=== PATIENT | male | born 1975 | race Caucasian/White ===

== ENCOUNTER 2016-11-03 15:19 | Emergency (ER) | payer OTHER ==
[2016-11-03 16:10] VITALS: RESP 18; TEMP 98.1; O2SAT 100
[2016-11-03] MEDS ORDERED: Naproxen 550 mg Tab PO STA (17:15)
[2016-11-03] MEDS ORDERED: Naproxen 550 mg Tab PO ONE (17:23)
[2016-11-03 17:47] LABS: RBC URINE 52 /hpf (0-3); URINE BILIRUBIN NEGATIVE (NEGATIVE); URINE COLOR Straw (YELLOW); URINE GLUCOSE (UA) NORMAL (Normal); URINE KETONE NEGATIVE (NEGATIVE); URINE LEUKOCYTE ESTERASE NEG Leu/uL (Negative); URINE PROTEIN NEGATIVE (NEGATIVE); URINE UROBILINOGEN NORMAL mg/dL (0.2-1.0); WBC URINE 1 /hpf (0-5)
[2016-11-03 17:48] LABS: URINE BLOOD 3+ (NEGATIVE)
--- NOTE | 2016-11-03 18:02 | C.PDOC ---
Time Seen by Provider: 11/03/16 17:07 Chief Complaint (Nursing): Abdominal Pain History Per: Patient Onset/Duration Of Symptoms: Hrs (since this morning), Sudden Onset Current Symptoms Are (Timing): Gone Severity: Severe Location Of Pain/Discomfort: RLQ Quality Of Discomfort: "Pain" Associated Symptoms: Urinary Symptoms Exacerbating Factors: None Additional History Per: Prior Records Past Medical History Reviewed: Historical Data, Nursing Documentation, Vital Signs Vital Signs: Last Vital Signs Temp 98.1 F 11/03/16 16:08 Pulse 69 11/03/16 16:08 Resp 18 11/03/16 16:08 BP 132/86 11/03/16 16:08 Pulse Ox 100 11/03/16 16:08 - Medical History PMH: Kidney Stones Surgical History: No Surg Hx Family History: States: Unknown Family Hx - Social History Hx Alcohol Use: No Hx Substance Use: No Review Of Systems Except As Marked, All Systems Reviewed And Found Negative. Constitutional: Negative for: Fever, Weakness Cardiovascular: Negative for: Chest Pain Respiratory: Negative for: Shortness of Breath Gastrointestinal: Negative for: Vomiting, Diarrhea Genitourinary: Positive for: Dysuria. Negative for: Scrotal Pain Musculoskeletal: Negative for: Neck Pain, Back Pain Skin: Negative for: Rash Neurological: Negative for: Weakness, Numbness, Seizures, Altered Mental Status Physical Exam - Physical Exam Appears: Non-toxic, No Acute Distress Skin: Normal Color, Warm, Dry, No Rash Head: Atraumatic, Normacephalic Eye(s): bilateral: PERRL, EOMI Neck: Normal ROM, Supple Cardiovascular: Rhythm Regular Respiratory: Normal Breath Sounds, No Accessory Muscle Use Gastrointestinal/Abdominal: Soft, No Tenderness Back: No CVA Tenderness Extremity: Normal ROM Neurological/Psych: Oriented x3, Normal Motor, Normal Sensation ED Course And Treatment - Laboratory Results Interpretation Of Abnormal: Microscopic hematuria O2 Sat by Pulse Oximetry: 100 Pulse Ox Interpretation: Normal Progress Note: Pt is currently pain free. Medical Decision Making Medical Decision Making: Pt likely already passed the kidney stone because pain already resolved spontaneously. Pt was given a urine strainer and will be referred to a Urologist. Disposition Counseled Patient/Family Regarding: Studies Performed, Diagnosis, Need For Followup, Rx Given - Disposition Referrals: Pankaj Webb MD [Staff Provider] - Disposition: HOME/ ROUTINE Disposition Time: 18:05 Condition: IMPROVED Additional Instructions: Drink plenty of fluids. Follow up with a Urologist for further evaluation and treatment. Return to the ER if you develop fever, vomiting, trouble urinating, worsening of symptoms or if you have any other concerns. Prescriptions: Naproxen [Naprosyn] 1 tab PO BID PRN #20 tab PRN Reason: Pain Instructions: Renal Colic (ED) - Clinical Impression Clinical Impression: Renal colic on right side
[2016-11-03 18:24] VITALS: BP 129/84; PULSE 71
== END 2016-11-03 18:24 | disposition home or self-care (01) ==
LOC: C.ER 15:19
DX: N23 Unspecified renal colic (principal)